=== PATIENT | male | born 1975 ===

== ENCOUNTER 2024-08-29 23:57 | Day surgery (SDC) | payer SELFPAY ==
[2024-08-30] MEDS: Sodium Chloride 0.9% 1,000 ML IV SCH (01:30)
[2024-08-30] MEDS ORDERED: Morphine 2 MG/ML VIAL SLOW IVP PRN (02:13)
[2024-08-30] MEDS ORDERED: Morphine 4 MG/ML VIAL SLOW IVP PRN (02:14)
[2024-08-30] MEDS ORDERED: Ondansetron PF 4 MG/2 ML Vial IVP PRN (02:14)
[2024-08-30 02:50] VITALS: BMI 29.2
[2024-08-30] MEDS: Piperacillin/Tazobactam 3.375 GM in Sodium Chloride 0.9% 100 ML IVPB SCH (03:59)
[2024-08-30] MEDS ORDERED: EPINEPHrine 1 MG/ML VIAL ONE (07:09)
[2024-08-30] MEDS ORDERED: Bupivacaine 0.25% HCL 30 ML VIAL ONE (07:09)
[2024-08-30] MEDS ORDERED: fentaNYL PF 100 MCG/2 ML SYRINGE ONE (07:14)
[2024-08-30] MEDS ORDERED: PROPOFOL 20 ML ONE (07:14)
[2024-08-30] MEDS ORDERED: Rocuronium Bromide 10 MG/ML (10ML VIAL) ONE (07:15)
[2024-08-30] MEDS ORDERED: Lidocaine 1% PF 5 ML VIAL ONE (07:15)
[2024-08-30] MEDS ORDERED: Dexamethasone 4 mg/ml Vial ONE (07:15)
[2024-08-30] MEDS ORDERED: Ketorolac Tromethamine 30 MG (1 mL) VIAL ONE (07:15)
[2024-08-30] MEDS ORDERED: Ondansetron PF 4 MG/2 ML Vial ONE (07:15)
[2024-08-30] MEDS ORDERED: Scopolamine 1 mg/72 hour Patch ONE (07:24)
[2024-08-30] MEDS ORDERED: Midazolam HCl 2 mg/2 ml Vial ONE (07:24)
[2024-08-30] MEDS ORDERED: SUGAMMADEX SODIUM 200 MG/2 ML VIAL ONE ×2 (08:08→08:19)
[2024-08-30] MEDS ORDERED: fentaNYL 50 mcg/mL 1 mL Vial ONE (08:10)
[2024-08-30] MEDS ORDERED: HYDROcodone/Acetaminophen 7.5/325 mg Tablet PO PRN (08:29)
[2024-08-30 12:19] VITALS: BP 135/66; TEMP 98
== END 2024-08-30 14:21 | disposition home or self-care (01) ==
LOC: SJX 23:57 → SURG A 08-30 00:37 → SJX 08-30 14:21
PROVIDERS: ATTEND Preventive Medicine Preventive Medicine/Occupational Environmental Medicine
PROC: 0DTJ4ZZ Resection of Appendix, Percutaneous Endoscopic Approach (ICD-10-PCS; principal; 2024-08-30)
DX: K35.33 Acute appendicitis with perforation, localized peritonitis, and gangrene, with abscess (principal); K21.9 Gastro-esophageal reflux disease without esophagitis; N40.0 Benign prostatic hyperplasia without lower urinary tract symptoms
CPT/HCPCS: 88304; A4649; C1889; J0171; J0665; J1100; J1885; J2250; J2405; J2543; J2704; J3010; J7030